=== PATIENT | male | born 1960 | race Caucasian/White ===

== ENCOUNTER 2019-05-28 06:22 | Day surgery (SDC) | payer OTHER ==
[~2019-05-28] VITALS: Ht 177.8 cm; Wt 96.2 kg
[2019-05-28] MEDS ORDERED: fentaNYL 0.05 MG/ML VIAL ONE (07:55)
[2019-05-28] MEDS ORDERED: LIDOCAINE 2% 100 MG/5 ML UJET TP ONE (07:55)
[2019-05-28] MEDS ORDERED: fentaNYL 0.05 MG/ML VIAL IVP ONE ×2 (08:40→10:10)
== END 2019-05-28 08:51 | disposition home or self-care (01) ==
LOC: MOR 06:22 → MMU 06:23 → MOR 08:51
PROVIDERS: ATTEND Internal Medicine Gastroenterology
DX: K63.5 Polyp of colon (principal); K57.30 Diverticulosis of large intestine without perforation or abscess without bleeding; I10 Essential (primary) hypertension; E78.5 Hyperlipidemia, unspecified; F17.200 Nicotine dependence, unspecified, uncomplicated; Z79.899 Other long term (current) drug therapy; Z86.010 Personal history of colon polyps; E66.9 Obesity, unspecified; Z68.31 Body mass index [BMI] 31.0-31.9, adult
CPT/HCPCS: 45385; 88305; J3010